=== PATIENT | male | born 1970 | race Hispanic/Latino ===

== ENCOUNTER 2017-04-04 11:28 | Inpatient (IN) | payer MEDICARE, MEDICAID ==
[2017-04-04 11:35] VITALS: O2SAT 100
--- NOTE | 2017-04-04 11:35 | ED PDOC ---
Psych Transfer Clearance - Clearance Statement Clearance Statement: Reviewed vital signs, lab results and transfer papers. Patient clinically stable for psychiatric admission.
[2017-04-04] MEDS ORDERED: Alum-Mag Hydrox-Simethicone Susp (30 mL) PO PRN (11:49)
[2017-04-04] MEDS ORDERED: DiphenhydrAMINE 50 mg/ml Inj IM PRN (11:49)
[2017-04-04] MEDS ORDERED: Magnesium Hydroxide Susp 30 ml UD PO PRN (11:49)
--- NOTE | 2017-04-04 11:53 | PCM.PSYCH ---
Initial Psychiatric Evaluation - Initial Psychiatric Evaluation Type of Admission: Voluntary Legal Status: Capacity Chief Complaint (in patient's own words): "I'm depressed." Patient's Reaction to Hospitalization: HPI: 47 yo male w/ h/o active cocaine abuse, most recent use yesterday, presents w/ suicidal ideation to jump off the bridge. The patient reports that he feels depressed and hopeless. He has not been compliant with outpatient psychiatric treatment or medications. He has pressured speech. He is currently able to contract for safety and denies active suicidal ideation/plan/ intent. He denies AH/VH/paranoia/delusions. PPHx: H/o of prior psychiatric admissions and treatment with various medications including (Thorazine, Lexapro, [place], Depakoe, Remeron, Pristiq). He reports that he has been diagnosed w/ depression and bipolar disorder in the past. He reports that he attempted to jump off a bridge 5 months ago in [place], [place] ([address] PMHx: Self reported history of asthma, CAD, DM, HLD, CVA, HTN, Heart Murmur Medications: States that he currently takes Advair, Levemir, Metformin, Iron and multiple vitamins ALL: Chlorpromazine, Thioridazine SHx: Homeless, +Active crack cocaine abuse, smokes 1ppd (declined smoking cessation), denies ETOH use Current Medications: Active Medications Generic Name Dose Route Start Last Admin Trade Name Freq PRN Reason Stop Dose Admin Acetaminophen 650 mg 04/04/17 11:49 Tylenol 325mg Tab PO Q4 PRN Pain, moderate (4-7) Al Hydrox/Mg Hydrox/Simethicone 30 ml 04/04/17 11:49 Maalox Plus 30 Ml PO Q4 PRN Dyspepsia Diphenhydramine HCl 50 mg 04/04/17 11:49 Benadryl IM Q6 PRN Extrapyramidal S/S Unable PO Diphenhydramine HCl 50 mg 04/04/17 11:49 Benadryl PO Q6 PRN Extrapyramidal Symptoms Haloperidol 5 mg 04/04/17 11:49 Haldol PO Q4 PRN Agitation Haloperidol Lactate 5 mg 04/04/17 11:49 Haldol IM Q4 PRN Agitation, Unable to Take PO Lorazepam 2 mg 04/04/17 11:49 Ativan IM Q4 PRN Anxiety/Agitation,Unable PO Lorazepam 2 mg 04/04/17 11:49 Ativan PO Q4 PRN Anxiety/Agitation Magnesium Hydroxide 30 ml 04/04/17 11:49 Milk Of Magnesia PO HS PRN Constipation Past Psychiatric History - Past Psychiatric History Previous Treatment History: Inpatient Pertinent Medical Hx (Current Medical&Sleep Prob, Allergies): Allergies Allergy/AdvReac Type Severity Reaction Status Date / Time chlorpromazine Allergy Verified 04/04/17 02:29 [From Thorazine] thioridazine [From Mellaril] Allergy Verified 04/04/17 02:29 Acetaminophen [Tylenol 325mg tab] 625 mg PO Q6 PRN 01/27/17 Albuterol HFA [Ventolin HFA 90 mcg/actuation (8 g)] 2 puff IH [id number] 01/27/17 Ascorbic Acid [Vitamin C] 500 mg PO DAILY 01/27/17 Cefdinir [Omnicef] 300 mg PO BID 01/27/17 Cholecalciferol [Vitamin D 1000 IU] 50,000 unit PO QWK 01/27/17 Cyanocobalamin (Vitamin B-12) [B-12] 1,000 mcg PO QWK 01/27/17 Doxycycline Hyclate 100 mg PO BID 01/27/17 Ergocalciferol (Vitamin D2) [Ergocal] 1.25 unit PO QWK 01/27/17 Ferrous Sulfate [Ferosul] 325 mg PO DAILY 01/27/17 Insulin Detemir [Levemir] 26 units SC DAILY 01/27/17 Pyridoxine HCl (Vitamin B6) [B-6] 25 mg PO DAILY 01/27/17 traMADol [Ultram] 50 mg PO TID 01/27/17 Escitalopram [Lexapro] 10 mg PO DAILY 30 Days #30 tab 01/31/17 Gabapentin [Neurontin] 300 mg PO BID 30 Days #60 cap 01/31/17 Glimepiride [amaRYL] 4 mg PO ACBD tab 01/31/17 Lisinopril [Zestril] 2.5 mg PO DAILY tab 01/31/17 Rosuvastatin Calcium [Crestor] 5 mg PO HS tab 01/31/17 hydrOXYzine HCl [Atarax] 25 mg PO BID 30 Days #60 tab 01/31/17 metFORMIN [glucOPHAGE] 1,000 mg PO BID tab 01/31/17 traZODone [Desyrel] 100 mg PO HS PRN 30 Days #30 tab 01/31/17 Review of Systems - Psychiatric Psychiatric: Abnormal Sleep Pattern, Anhedonia, Change in Appetite, Depression, Difficulty Concentrating, Mood Swings, Suicidal Ideation Mental Status Examination - Personal Presentation Personal Presentation: Looks stated age - Affect Affect: Constricted - Motor Activity Motor Activity: Calm - Reliability in Providing Information Reliability in Providing Information: Poor, due to altered mood - Speech Speech: Coherent - Mood Mood: Depressed - Formal Thought Process Formal Thought Process: Loosening of associations, Circumstantial - Hallucinations/Delusions Additional comments: Denies AH/VH/paranoia/delusions - Obsessions/Compulsions Obsessions: No Compulsions: No - Cognitive Functions Orientation: Person, Place, Situation, Time Sensorium: Alert Attention/Concentration: Attentive Estimate of Intelligence: Average Judgement: Intact, as evidence by: Insight regarding need for hospitalization Memory: Recent intact, as evidence by: Ability to recall events of the day - Risk Risk: Suicidal, Diminished functioning - Strength & Assets Inventory Strength & Assets Inventory: Cooperative - Limitations Limitations: Other (Homeless) DSM 5 DX - DSM 5 DSM 5 Diagnosis: Mood Disorder; Cocaine Use Disorder - Recommended/Plan of Treatment Treatment Recommendations and Plan of Treatment: Mood Disorder; Cocaine Use Disorder -Admit to psychiatry unit -Start Lexapro 10 mg PO Daily -Medicine consult -Individual and group therapy -Motivational interviewing -Psychoeducation -Disposition planning Projected ELOS: 3-7 days Discharge Plan and Discharge Criteria: Discharge patient when he is psychiatrically stable - Smoking Cessation Smoking Cessation Initiated: No Reason for not providing: Patient declined
[2017-04-04] MEDS ORDERED: Multivitamin With Minerals Tab PO SCH (13:00)
--- NOTE | 2017-04-04 16:35 | CP.PCM.CON ---
History of Present Illness - History of Present Illness History of Present Illness: reason for consult: per hospital protocol 47 year old male PMH DM, HTN, HLD, active cocaine abuse, admitted for suicidal ideations. No other omplaints at this time. HD stable NAD ROS: per HPI all other systems reviewed and negative. Past Patient History - Infectious Disease Hx of Infectious Diseases: None - Past Social History Smoking Status: Heavy Smoker > 10 Cigarettes Daily - CARDIAC Hx Hypertension: Yes - PULMONARY Hx Asthma: Yes Hx Bronchitis: Yes - NEUROLOGICAL Hx Seizures: No - HEENT Hx HEENT Problems: Yes (c/o poor hearing) - RENAL Hx Chronic Kidney Disease: No - ENDOCRINE/METABOLIC Hx Endocrine Disorders: Yes Hx Diabetes Mellitus Type 1: Yes (IDDM...non compliant) - HEMATOLOGICAL/ONCOLOGICAL Hx Anemia: Yes (no meds for same) Hx Human Immunodeficiency Virus (HIV): No - INTEGUMENTARY Hx Dermatological Problems: No - MUSCULOSKELETAL/RHEUMATOLOGICAL Hx Musculoskeletal Disorders: No - GASTROINTESTINAL Hx Gastrointestinal Disorders: Yes (umbilical hernia) - GENITOURINARY/GYNECOLOGICAL Hx Sexually Transmitted Disorders: No - PSYCHIATRIC Hx Anxiety: Yes Hx Bipolar Disorder: Yes Hx Depression: Yes Hx Substance Use: Yes - SURGICAL HISTORY Hx Surgeries: Yes Hx Herniorrhaphy: Yes - ANESTHESIA Hx Anesthesia: Yes Hx Anesthesia Reactions: No Meds Allergies/Adverse Reactions: Allergies Allergy/AdvReac Type Severity Reaction Status Date / Time chlorpromazine Allergy Verified 04/04/17 02:29 [From Thorazine] thioridazine [From Mellaril] Allergy Verified 04/04/17 02:29 - Medications Medications: Current Medications Acetaminophen (Tylenol 325mg Tab) 650 mg PO Q4 PRN PRN Reason: Pain, moderate (4-7) Al Hydrox/Mg Hydrox/Simethicone (Maalox Plus 30 Ml) 30 ml PO Q4 PRN PRN Reason: Dyspepsia Diphenhydramine HCl (Benadryl) 50 mg IM Q6 PRN PRN Reason: Extrapyramidal S/S Unable PO Diphenhydramine HCl (Benadryl) 50 mg PO Q6 PRN PRN Reason: Extrapyramidal Symptoms Escitalopram Oxalate (Lexapro) 10 mg PO DAILY [facility] Ferrous Sulfate (Feosol) 325 mg PO DAILY [facility] Gabapentin (Neurontin) 300 mg PO BID [facility] Haloperidol (Haldol) 5 mg PO Q4 PRN PRN Reason: Agitation Haloperidol Lactate (Haldol) 5 mg IM Q4 PRN PRN Reason: Agitation, Unable to Take PO Home Med (Glimepiride [Amaryl]) 4 mg PO ACBD [facility] Home Med (Lisinopril [Zestril]) 2.5 mg PO DAILY [facility] Home Med (Rosuvastatin Calcium [Crestor]) 5 mg PO HS [facility] Hydroxyzine HCl (Atarax) 25 mg PO BID [facility] Insulin Detemir (Levemir) 26 units SC DAILY [facility] Lorazepam (Ativan) 2 mg IM Q4 PRN PRN Reason: Anxiety/Agitation,Unable PO Lorazepam (Ativan) 2 mg PO Q4 PRN PRN Reason: Anxiety/Agitation Magnesium Hydroxide (Milk Of Magnesia) 30 ml PO HS PRN PRN Reason: Constipation Metformin HCl (Glucophage) 1,000 mg PO BID [facility] Multivitamins/Minerals (Therapeutic-M Tab) 1 tab PO DAILY [facility] Trazodone HCl (Desyrel) 50 mg PO HS PRN PRN Reason: Insomnia Physical Exam - Constitutional Appears: Non-toxic, No Acute Distress - Head Exam Head Exam: ATRAUMATIC, NORMOCEPHALIC - Eye Exam Eye Exam: EOMI, Normal appearance, PERRL Pupil Exam: NORMAL ACCOMODATION - ENT Exam ENT Exam: Mucous Membranes Moist, Normal Oropharynx - Respiratory Exam Respiratory Exam: Clear to Auscultation Bilateral, NORMAL BREATHING PATTERN - Cardiovascular Exam Cardiovascular Exam: RRR, +S1, +S2 - GI/Abdominal Exam GI & Abdominal Exam: Normal Bowel Sounds, Soft. absent: Mass, Organomegaly, Tenderness - Extremities Exam Extremities exam: Positive for: normal capillary refill, pedal pulses present - Back Exam Back exam: absent: CVA tenderness (L), CVA tenderness (R) - Neurological Exam Neurological exam: Alert, Oriented x3 - Psychiatric Exam Psychiatric exam: Normal Affect, Normal Mood Results - Vital Signs Recent Vital Signs: Last Vital Signs Temp 98.1 F 04/04/17 11:33 Pulse 86 04/04/17 11:33 Resp 19 04/04/17 11:33 BP 112/67 04/04/17 11:33 Pulse Ox 100 04/04/17 11:33 Assessment & Plan - Assessment and Plan (Free Text) Plan: Suicidal Ideations Per Psychiatry
--- NOTE | 2017-04-04 16:41 | PCM.BM ---
<KaciedevonRalf wyman - Last Filed: 04/04/17 16:42> Treatment Plan Problems - Problems identified on initial assessmt Hopelessness/Helplessness Date Initiated: 04/04/17 Time Initiated: 16:00 Assessment reference: HP, PE, SW, AT, NA, Other Status: Active Treatment assets and liabiliti Patient Assests: cooperative, educated, ADL independent, cognitively intact Patient Liabilities: live alone, physical pain - Milieu Protocol Maintain good personal hygiene: every shift Encourage regular showers, every shift Remind patient to perform daily oral care, every shift Assist patient to perform ADL's Maintain personal safety: every shift Educate patient to report safety concerns to staff, every shift Monitor environment for contraband/sharps Medication safety: Monitor for expected outcome, potential side effects: every shift, Assess barriers to learning: every shift, Assess readiness for medication education: every shift Milieu Narrative: Mood Disorder; Cocaine Use Disorder -Admit to psychiatry unit -Start Lexapro 10 mg PO Daily -Medicine consult -Individual and group therapy -Motivational interviewing -Psychoeducation -Disposition planning Discharge/Continuing Care - Treatment Team Participation Patient/Family/SO Statement: Mood Disorder; Cocaine Use Disorder -Admit to psychiatry unit -Start Lexapro 10 mg PO Daily -Medicine consult -Individual and group therapy -Motivational interviewing -Psychoeducation -Disposition planning <Lin Moreno - Last Filed: 04/09/17 08:39> - Diagnosis (1) Depression Status: Acute Interventions: psychotherapy, pharmacotherapy 04/09/17 08:40 <Carin Balderas - Last Filed: 04/09/17 16:33> Treatment assets and liabiliti Patient Assests: adapts well, cooperative (pt. refused to meet with right for majority of hospitalization), educated, resourceful, self-reliant, ADL independent, cognitively intact Patient Liabilities: live alone, physical pain, poor support system, dietary restrictions (pt. hs extensive hx of diabetes), substance abuse Family Contact Family involvement: Famliy/SO not involved Family contact: Patient declines to allow family contact at present - Goals for Treatment Patient goals for treatment: Patient to continue stabilization on 3NP through medication management and group/supportive therapy. Patient to be encouraged to attend groups regularly to promote self-awareness, sobriety, and improve insight , coping skills and self-esteem. Patient to be provided with referral for appropriate level of aftercare to reduce risk of future hospitalizations and ensure safety in the community. Discharge/Continuing Care - Education Needs Education Needs: Patient Medication, Patient Coping Skills, Patient Anger Management skills, Patient Community resources, Patient Aftercare Safety Plan - Discharge Discharge Criteria: Tolerates medication w/o severe side effects, Free of Suicidal thoughts, Free of agitation, Normal sleep pattern, Ability to care for self, No longer exhibiting s/s of withdrawal, Reduction of target symptoms Discharge to:: [facility] - Treatment Team Participation Patient/Family/SO Statement: 04/09/17 16:33 Patient superficially cooperative and easily irritable through-out tx team. Patient AOX4 with constricted affect and fair eye contact. Patient untidy with poor ADLs. Thoughts somewhat disorganized at times but pt is easily refocused. Patient repeatedly asked Tomorrow is the 1st right? I want to go on the 1st. through-out assessment. Patient reported improvement in symptoms of depression since admission. Patient denied SI/HI and was able to contract for safety on 3NP. Patient declined referrals to inpatient rehabs, [facility] or [facility]. Patient reports plan to stay in [facility] and pursue substance abuse tx with [facility] ([place]) upon discharge. Patient stated I already got it all figured out. Winch Derrick Operator encouraged [facility] referral. Patient agreeable. Discussed with Family/SO: No Was Patient/Family/SO present at Treatment Team Meeting: Yes
[2017-04-04] MEDS ORDERED: Insulin Lispro (humaLOG) 100 Units/ml Inj SC ONE (17:00)
[2017-04-04] MEDS: Insulin Lispro (humaLOG) 100 Units/ml Inj SC SCH (21:27)
[2017-04-05] MEDS ORDERED: Patient's Own Med (Glimepiride [Amaryl] 4 MG) PO SCH (07:30)
[2017-04-05] MEDS ORDERED: Patient's Own Med (Lisinopril [Zestril] 2.5 MG) PO SCH (09:00)
[2017-04-05] MEDS ORDERED: Insulin Detemir 100 Units/ml Inj SC SCH (09:00)
[2017-04-05] MEDS: Multivitamin With Minerals Tab PO SCH (09:03)
[2017-04-05] MEDS: GlipiZIDE 10 mg SR Tab PO SCH ×2 (09:03→17:46)
[2017-04-05] MEDS: Insulin Lispro (humaLOG) 100 Units/ml Inj SC SCH ×4 (09:05→22:00)
--- NOTE | 2017-04-05 11:22 | PCM.PYCHPN ---
Psychiatric Progress Note - Psychiatric Progress Note Patient seen today, length of contact: Patient evaluated, chart reviewed Patient Chief Complaint: "I'm depressed." Problems Identified/Issues Discussed: Patient is irritable this morning and was observed yelling at staff with breakfast demands this morning. He continues to be labile and irritable towards proposal lead writer and describes his mood as depressed. He denies AH/VH/SI/HI. Medication Change: No Medical Record Reviewed: Yes Consults ordered or reviewed: Medicine Mental Status Examination - Cognitive Function Orientation: Person, Place, Situation, Time Memory: Intact Attention: WNL Concentration: WNL Association: [facility] Fund of Knowledge: [facility] Decription of patient's judgement and insights: Poor I/J - Mood Mood: Depressed - Affect Affect: Constricted, Other (Labile, Irritable) - Speech Speech: Loud - Formal Thought Process Formal Thought Process: Circumstantial Psychotic Thoughts and Behaviors: Denies AH/VH/paranoia/delusions - Suicidal Ideation Suicidal Ideation: No - Homicidal Ideation Homicidal Ideation: No Goal/Treatment Plan - Goal/Treatment Plan Need for Continued Stay: Remain at risks for inpatient hospitalization, Severe depression anxiety, Discharge may exacerbated symptoms Progress Toward Problem(s) and Goals/Treatment Plan: Mood Disorder; Cocaine Use Disorder -Continue Lexapro 10 mg PO Daily -Medicine consult -Individual and group therapy -Motivational interviewing -Psychoeducation -Disposition planning Estimated Date of D/C: 04/09/17
[2017-04-05] MEDS: Albuterol HFA 90 mcg/actuation (8 g) IH SCH ×2 (17:47→21:54)
[2017-04-06] MEDS: Albuterol HFA 90 mcg/actuation (8 g) IH SCH ×5 (02:00→20:16)
[2017-04-06] MEDS: Insulin Detemir 100 Units/ml Inj SC SCH ×3 (03:49→21:23)
[2017-04-06] MEDS: Insulin Lispro (humaLOG) 100 Units/ml Inj SC SCH ×4 (06:46→21:19)
[2017-04-06 09:25] VITALS: RESP 18
[2017-04-06] MEDS: GlipiZIDE 10 mg SR Tab PO SCH ×3 (09:30→18:16)
[2017-04-06] MEDS: Multivitamin With Minerals Tab PO SCH ×2 (09:34→10:14)
--- NOTE | 2017-04-06 15:13 | PCM.PYCHPN ---
Psychiatric Progress Note - Psychiatric Progress Note Patient seen today, length of contact: Patient evaluated, chart reviewed Patient Chief Complaint: I am very depressed I miss my Problems Identified/Issues Discussed: pt on evaluation reported feeling depressed, anxious , presenting with depressed affect and disorganized thought process, pt reported he relapse on cocaine due to feeling depressed as he continues to mourn his who 9 months ago, prt continues to report feeling hopeless and helpless, denied any current suicidal or homicidal ideations denied perceptual disturbances, no reported side effect of medications DSM 5 Symptoms Update: cocine induced mood disorder with depressive features depression Medication Change: No Medical Record Reviewed: Yes Mental Status Examination - Cognitive Function Orientation: Person, Place, Situation, Time Memory: Intact Attention: WNL Concentration: WNL Association: [facility] Fund of Knowledge: [facility] - Mood Mood: Depressed - Affect Affect: Constricted, Other (Labile, Irritable) - Speech Speech: Loud - Formal Thought Process Formal Thought Process: Circumstantial Psychotic Thoughts and Behaviors: pt denied any current perceptual disturbances, non ellicited - Suicidal Ideation Suicidal Ideation: No - Homicidal Ideation Homicidal Ideation: No Goal/Treatment Plan - Goal/Treatment Plan Need for Continued Stay: Remain at risks for inpatient hospitalization, Severe depression anxiety, Discharge may exacerbated symptoms Progress Toward Problem(s) and Goals/Treatment Plan: continue with lexapro and neurontin motivattional, group and supportive therapy Estimated Date of D/C: 04/09/17
[2017-04-07] MEDS: Albuterol HFA 90 mcg/actuation (8 g) IH SCH ×3 (06:14→18:11)
[2017-04-07] MEDS: Insulin Lispro (humaLOG) 100 Units/ml Inj SC SCH ×4 (08:08→21:14)
[2017-04-07] MEDS: Multivitamin With Minerals Tab PO SCH (08:33)
[2017-04-07] MEDS: GlipiZIDE 10 mg SR Tab PO SCH ×2 (08:39→18:00)
[2017-04-07 10:15] LABS: ALB/GLOB RATIO 1.4 (1.0-2.1); ALBUMIN 3.9 g/dL (3.5-5.0); ALT/SGPT 30 U/L (21-72); AST/SGOT 18 U/L (17-59); BLOOD UREA NITROGEN 19 mg/dl (9-20); CALCIUM 9.1 mg/dL (8.4-10.2); GFR AFRICAN-AMERICAN > 60; GFR NON-AFRICAN AMERICAN > 60; HDL CHOLESTEROL 40 MG/DL (30-70)
[2017-04-07 10:26] LABS: LDL CHOLESTEROL 104 mg/dL (0-129)
[2017-04-07 10:28] LABS: T4 6.09 ug/dl (5.5-11.0)
--- NOTE | 2017-04-07 17:58 | PCM.PYCHPN ---
Psychiatric Progress Note - Psychiatric Progress Note Patient seen today, length of contact: Patient evaluated, chart reviewed Patient Chief Complaint: I AM STILL DEPRESSED AND TIRED Problems Identified/Issues Discussed: PT CONTINUES TO PRESENT WITH DEPRESSED MOOD AND AFFECT, ISOLATIVE IN HIS ROOM REFUSING TO ATTEND GROUPS, LOW ENERGY AND ANHEDONIA, PASSIVE SUICIDAL IDEATION WITHOUT A PLAN DENIED HOMICIDAL IDEATIONS DENIED PERCEPTUAL DISTURBANCES, LIMITED INSIGHT INTO ILLNESS DSM 5 Symptoms Update: COCAINE INDUCED MOOD DISORDER WITH DEPRESSIVE FEATURES COCAINE USE DISORDER DEPRESSION Medication Change: No Medical Record Reviewed: Yes Mental Status Examination - Cognitive Function Orientation: Person, Place, Situation, Time Memory: Intact Attention: WNL Concentration: WNL Association: [facility] Fund of Knowledge: [facility] - Mood Mood: Depressed - Affect Affect: Constricted, Other (Labile, Irritable) - Speech Speech: Loud - Formal Thought Process Formal Thought Process: Circumstantial Psychotic Thoughts and Behaviors: pt denied any current perceptual disturbances, non ellicited - Suicidal Ideation Suicidal Ideation: No - Homicidal Ideation Homicidal Ideation: No Goal/Treatment Plan - Goal/Treatment Plan Need for Continued Stay: Remain at risks for inpatient hospitalization, Severe depression anxiety, Discharge may exacerbated symptoms Progress Toward Problem(s) and Goals/Treatment Plan: INCREASE lexapro TO 20MG continue with neurontin encourage pt to attend groups motivattional, group and supportive therapy Estimated Date of D/C: 04/09/17
[2017-04-07] MEDS: Insulin Detemir 100 Units/ml Inj SC SCH (21:15)
[2017-04-08] MEDS: Albuterol HFA 90 mcg/actuation (8 g) IH SCH ×5 (01:39→20:12)
[2017-04-08] MEDS: Insulin Lispro (humaLOG) 100 Units/ml Inj SC SCH ×4 (08:51→21:09)
[2017-04-08] MEDS: GlipiZIDE 10 mg SR Tab PO SCH ×2 (08:53→19:01)
[2017-04-08] MEDS: Multivitamin With Minerals Tab PO SCH (08:53)
--- NOTE | 2017-04-08 14:58 | PCM.PYCHPN ---
Psychiatric Progress Note - Psychiatric Progress Note Patient seen today, length of contact: Patient evaluated, chart reviewed Patient Chief Complaint: I FEEL BETTER TODAY Problems Identified/Issues Discussed: PT evaluated with treatment team, reported better mood, brighter affect, better communication with staff and less isolative, reported improved sleep and appetite denied any current suicidal or homicidal ideations, denied perceptual disturbnaces, no reported side effects of medications DSM 5 Symptoms Update: cocaine induced mood disorder with depressive features major depression Medication Change: No Medical Record Reviewed: Yes Mental Status Examination - Cognitive Function Orientation: Person, Place, Situation, Time Memory: Intact Attention: WNL Concentration: WNL Association: [facility] Fund of Knowledge: [facility] - Mood Mood: Neutral - Affect Affect: Constricted, Other (Labile, Irritable) - Speech Speech: Loud - Formal Thought Process Formal Thought Process: Circumstantial Psychotic Thoughts and Behaviors: pt denied any current perceptual disturbances, non ellicited - Suicidal Ideation Suicidal Ideation: No - Homicidal Ideation Homicidal Ideation: No Goal/Treatment Plan - Goal/Treatment Plan Need for Continued Stay: Remain at risks for inpatient hospitalization, Severe depression anxiety, Discharge may exacerbated symptoms Progress Toward Problem(s) and Goals/Treatment Plan: continue lexapro 15MG continue with neurontin for anxiety and pain encourage pt to attend groups motivattional, group and supportive therapy Estimated Date of D/C: 04/09/17
[2017-04-08] MEDS: Insulin Detemir 100 Units/ml Inj SC SCH (21:24)
[2017-04-09] MEDS: Albuterol HFA 90 mcg/actuation (8 g) IH SCH ×2 (06:41→09:22)
[2017-04-09 09:12] VITALS: BP 144/59; TEMP 98.1
[2017-04-09] MEDS: Insulin Lispro (humaLOG) 100 Units/ml Inj SC SCH (09:17)
[2017-04-09] MEDS: GlipiZIDE 10 mg SR Tab PO SCH (09:21)
[2017-04-09] MEDS: Multivitamin With Minerals Tab PO SCH (09:21)
[2017-04-09 09:26] VITALS: PULSE 61
--- NOTE | 2017-04-09 11:13 | PCM.PYCHDC ---
Mental Status Examination - Mental Status Examination Orientation: Person, Place, Situation Mood: Neutral Affect: Broad Speech: Appropriate Attention: WNL Concentration: WNL Association: WNL Fund of Knowledge: WNL Formal Thought Process: No Impairment Description of patient's judgement and insight: partial insight and poor judgement Psychotic Thoughts and Behaviors: pt denied any current perceptual disturbances, non ellicited Suicidal Ideation: No Current Homicidal Ideation?: No Discharge Summary - Discharge Note Reason for Hospitalization: 47 yo male w/ h/o active cocaine abuse, most recent use yesterday, presents w/ suicidal ideation to jump off the bridge. The patient reports that he feels depressed and hopeless. He has not been compliant with outpatient psychiatric treatment or medications. He has pressured speech. He is currently able to contract for safety and denies active suicidal ideation/plan/intent. He denies AH/VH/paranoia/delusions. Laboratory Data: Abnormal Lab Results 04/08/17 04/08/17 04/08/17 13:37 17:14 21:07 POC Glucose (mg/dL) 189 H 223 H 216 H 04/09/17 06:34 POC Glucose (mg/dL) 107 Consultations:: List each consultation separately and include: 1. Reason for request. 2. Findings. 3. Follow-up Summary of Hospital Course include:: 1. Description of specific treatment plan utilized for patients during their course of treatmen. 2. Summarize the time- course for resolution of acute symptoms and/or regressed behaviors. 3. Describe issues identified and worked on during hospitalization. 4. Describe medication utilized. 5. Describe medical problems identified and treated. 6. Reassessment of suicide risk Summary of Hospital Course: pt on admission was started on lexapro for anxiety it was uptitrated to 15mg pt was also started on neurontin for anxiety Motivational group and supportive therapy provided no reported side effects of medications Mental status on discharge was stable, pt denied suicidal or homicidal ideations denied perceptual disturbances, follow up arranged by social media editor with outpatient [facility] and referral to - Diagnosis (1) Depression Current Visit: No Status: Acute - Final Diagnosis (DSM 5) Condition upon Discharge: GOOD DSM 5: cocaine induced mood disorder with depressive features cocaine use disorder mjor depression Disposition: HOME/ ROUTINE Follow-up Treatment Plan: [facility] Prescriptions/Medication Reconciliation: Escitalopram [Lexapro] 15 mg PO DAILY 30 Days #90 tab Gabapentin [Neurontin] 300 mg PO BID 30 Days #60 cap GlipiZIDE SR [Glucotrol XL] 10 mg PO ACBD 15 Days #15 tab hydrOXYzine HCl [Atarax] 25 mg PO BID 30 Days #60 tab Lisinopril [Zestril] 2.5 mg PO DAILY 15 Days #7 tab MetFORMIN [glucoPHAGE] 1,000 mg PO BID 15 Days #30 tab traZODone [Desyrel] 50 mg PO HS PRN 30 Days #30 tab PRN Reason: Insomnia - Antipsychotic Medications Pt discharged on 2 or more routine antipsychotic medications: No
== END 2017-04-09 12:03 | disposition home or self-care (01) | DRG 895 ==
LOC: H.ER 11:28 → H.ERHOLD 11:34 → H.PSYCH 12:00
PROVIDERS: ADMIT Psychiatry & Neurology Psychiatry; ATTEND Psychiatry & Neurology Psychiatry
PROC: HZ57ZZZ Individual Psychotherapy for Substance Abuse Treatment, Motivational Enhancement (ICD-10-PCS; principal; 2017-04-04)
PROC: HZ59ZZZ Individual Psychotherapy for Substance Abuse Treatment, Supportive (ICD-10-PCS; 2017-04-04)
PROC: GZHZZZZ Group Psychotherapy (ICD-10-PCS; 2017-04-04)
DX: F14.94 Cocaine use, unspecified with cocaine-induced mood disorder (principal); R45.851 Suicidal ideations; F32.9 Major depressive disorder, single episode, unspecified; F41.9 Anxiety disorder, unspecified; Z91.19 Patient's noncompliance with other medical treatment and regimen; Z91.14 Patient's other noncompliance with medication regimen; I25.10 Atherosclerotic heart disease of native coronary artery without angina pectoris; E78.5 Hyperlipidemia, unspecified; Z86.73 Personal history of transient ischemic attack (TIA), and cerebral infarction without residual deficits; I10 Essential (primary) hypertension; E10.9 Type 1 diabetes mellitus without complications; Z79.4 Long term (current) use of insulin; Z59.0 Homelessness; F17.210 Nicotine dependence, cigarettes, uncomplicated

== ENCOUNTER 2017-04-28 23:36 | Emergency (ER) | payer MEDICARE, MEDICAID ==
[2017-04-28 23:52] VITALS: BP 165/92; PULSE 69; RESP 18; TEMP 98.1; O2SAT 98
--- NOTE | 2017-04-29 02:10 | ED PDOC ---
HPI: Allergic Reaction Time Seen by Provider: 04/28/17 23:56 Chief Complaint (Nursing): Allergic Reaction Past Medical History Vital Signs: Last Vital Signs Temp 98.1 F 04/28/17 23:45 Pulse 69 04/28/17 23:45 Resp 18 04/28/17 23:45 BP 165/92 H 04/28/17 23:45 Pulse Ox 98 04/28/17 23:45 - Medical History PMH: Anemia (no meds for same), Anxiety, Asthma, Bipolar Disorder, Bronchitis, Depression, HTN Denies: Diabetes, Hepatitis, HIV, Chronic Kidney Disease, Seizures, Sexually Transmitted Disease - Immunization History Hx Tetanus Toxoid Vaccination: No Hx Influenza Vaccination: No Hx Pneumococcal Vaccination: No - Home Medications Home Medications: Ambulatory Orders Medication Instructions Recorded Acetaminophen [Tylenol 325mg tab] 625 mg PO Q6 PRN 01/27/17 Albuterol HFA [Ventolin HFA 90 2 puff IH [id number] 01/27/17 mcg/actuation (8 g)] Ascorbic Acid [Vitamin C] 500 mg PO DAILY 01/27/17 Cefdinir [Omnicef] 300 mg PO BID 01/27/17 Cholecalciferol [Vitamin D 1000 IU] 50,000 unit PO QWK 01/27/17 Cyanocobalamin (Vitamin B-12) 1,000 mcg PO QWK 01/27/17 [B-12] Doxycycline Hyclate 100 mg PO BID 01/27/17 Ergocalciferol (Vitamin D2) 1.25 unit PO QWK 01/27/17 [Ergocal] Ferrous Sulfate [Ferosul] 325 mg PO DAILY 01/27/17 Insulin Detemir [Levemir] 26 units SC DAILY 01/27/17 Pyridoxine HCl (Vitamin B6) [B-6] 25 mg PO DAILY 01/27/17 traMADol [Ultram] 50 mg PO TID 01/27/17 Glimepiride [amaRYL] 4 mg PO ACBD tab 01/31/17 Lisinopril [Zestril] 2.5 mg PO DAILY tab 01/31/17 Rosuvastatin Calcium [Crestor] 5 mg PO HS tab 01/31/17 Atorvastatin [Lipitor] 10 mg PO HS #0 tab 04/09/17 Escitalopram [Lexapro] 15 mg PO DAILY 30 Days #90 tab 04/09/17 Ferrous Sulfate [Feosol] 325 mg PO DAILY tab 04/09/17 Gabapentin [Neurontin] 300 mg PO BID 30 Days #60 cap 04/09/17 GlipiZIDE SR [Glucotrol XL] 10 mg PO ACBD 15 Days #15 tab 04/09/17 Lisinopril [Zestril] 2.5 mg PO DAILY 15 Days #7 tab 04/09/17 MetFORMIN [glucoPHAGE] 1,000 mg PO BID 15 Days #30 tab 04/09/17 hydrOXYzine HCl [Atarax] 25 mg PO BID 30 Days #60 tab 04/09/17 traZODone [Desyrel] 50 mg PO HS PRN 30 Days #30 tab 04/09/17 - Allergies Allergies/Adverse Reactions: Allergies Allergy/AdvReac Type Severity Reaction Status Date / Time chlorpromazine Allergy seizure Verified 04/28/17 23:45 [From Thorazine] thioridazine [From Mellaril] Allergy seizure Verified 04/28/17 23:45 - ECG O2 Sat by Pulse Oximetry: 98 Disposition - Clinical Impression Clinical Impression: Side effect of medication - Disposition Condition: STABLE Instructions: Side Effects From Medicines Forms: [employer] Connect (Kosovan)
--- NOTE | 2017-04-29 02:21 | ED PDOC ---
HPI: General Adult Time Seen by Provider: 04/28/17 23:56 Chief Complaint (Nursing): Allergic Reaction Chief Complaint (Provider): Dizziness and Fatigue History Per: Patient History/Exam Limitations: no limitations Onset/Duration Of Symptoms: Hrs (since this evening) Current Symptoms Are (Timing): Still Present Additional Complaint(s): 47 year old undomiciled male presents to ED with complaints of dizziness and fatigue since this evening and has a past medical history of bronchitis, COPD, and bipolar disorder. Patient notes symptoms occurred after taking Vistaril as prescribed by his PMD. Reports that he is currently taking a course of antibiotics for a URI. PCP: AMANDA Past Medical History Reviewed: Historical Data, Nursing Documentation, Vital Signs Vital Signs: Last Vital Signs Temp 98.1 F 04/28/17 23:45 Pulse 69 04/28/17 23:45 Resp 18 04/28/17 23:45 BP 165/92 H 04/28/17 23:45 Pulse Ox 98 04/28/17 23:45 - Medical History PMH: Anemia (no meds for same), Anxiety, Asthma, Bipolar Disorder, Bronchitis, Depression, HTN Denies: Diabetes, Hepatitis, HIV, Chronic Kidney Disease, Seizures, Sexually Transmitted Disease - Family History Family History: States: Unknown Family Hx - Living Arrangements Living Arrangements: Other (Undomiciled) - Immunization History Hx Tetanus Toxoid Vaccination: No Hx Influenza Vaccination: No Hx Pneumococcal Vaccination: No - Home Medications Home Medications: Ambulatory Orders Medication Instructions Recorded Acetaminophen [Tylenol 325mg tab] 625 mg PO Q6 PRN 01/27/17 Albuterol HFA [Ventolin HFA 90 2 puff IH [id number] 01/27/17 mcg/actuation (8 g)] Ascorbic Acid [Vitamin C] 500 mg PO DAILY 01/27/17 Cefdinir [Omnicef] 300 mg PO BID 01/27/17 Cholecalciferol [Vitamin D 1000 IU] 50,000 unit PO QWK 01/27/17 Cyanocobalamin (Vitamin B-12) 1,000 mcg PO QWK 01/27/17 [B-12] Doxycycline Hyclate 100 mg PO BID 01/27/17 Ergocalciferol (Vitamin D2) 1.25 unit PO QWK 01/27/17 [Ergocal] Ferrous Sulfate [Ferosul] 325 mg PO DAILY 01/27/17 Insulin Detemir [Levemir] 26 units SC DAILY 01/27/17 Pyridoxine HCl (Vitamin B6) [B-6] 25 mg PO DAILY 01/27/17 traMADol [Ultram] 50 mg PO TID 01/27/17 Glimepiride [amaRYL] 4 mg PO ACBD tab 01/31/17 Lisinopril [Zestril] 2.5 mg PO DAILY tab 01/31/17 Rosuvastatin Calcium [Crestor] 5 mg PO HS tab 01/31/17 Atorvastatin [Lipitor] 10 mg PO HS #0 tab 04/09/17 Escitalopram [Lexapro] 15 mg PO DAILY 30 Days #90 tab 04/09/17 Ferrous Sulfate [Feosol] 325 mg PO DAILY tab 04/09/17 Gabapentin [Neurontin] 300 mg PO BID 30 Days #60 cap 04/09/17 GlipiZIDE SR [Glucotrol XL] 10 mg PO ACBD 15 Days #15 tab 04/09/17 Lisinopril [Zestril] 2.5 mg PO DAILY 15 Days #7 tab 04/09/17 MetFORMIN [glucoPHAGE] 1,000 mg PO BID 15 Days #30 tab 04/09/17 hydrOXYzine HCl [Atarax] 25 mg PO BID 30 Days #60 tab 04/09/17 traZODone [Desyrel] 50 mg PO HS PRN 30 Days #30 tab 04/09/17 - Allergies Allergies/Adverse Reactions: Allergies Allergy/AdvReac Type Severity Reaction Status Date / Time chlorpromazine Allergy seizure Verified 04/28/17 23:45 [From Thorazine] thioridazine [From Mellaril] Allergy seizure Verified 04/28/17 23:45 Review of Systems ROS Statement: Except As Marked, All Systems Reviewed And Found Negative Constitutional: Positive for: Other (Fatigue) Neurological: Positive for: Dizziness Physical Exam - Reviewed Nursing Documentation Reviewed: Yes Vital Signs Reviewed: Yes - Physical Exam Appears: Positive for: Non-toxic, No Acute Distress Skin: Positive for: Normal Color, Warm, Dry Eye Exam: Positive for: Normal appearance ENT: Positive for: Normal ENT Inspection, Pharynx Is (clear) Cardiovascular/Chest: Positive for: Regular Rate, Rhythm. Negative for: Murmur Respiratory: Positive for: Normal Breath Sounds. Negative for: Respiratory Distress Gastrointestinal/Abdominal: Positive for: Soft. Negative for: Tenderness Neurologic/Psych: Positive for: Alert, Oriented. Negative for: Motor/Sensory Deficits - ECG O2 Sat by Pulse Oximetry: 98 (RA) Pulse Ox Interpretation: Normal Medical Decision Making Medical Decision Makin Initial impression: normal side effects of Vistaril Upon provider evaluation, patient looked awake, alert, and oriented x3. Patient was watching TV while provider attempted to evaluate patient. Provider explained the regular side effects of Vistaril to the patient and advised him to follow up with PMD in 2-3 days. Patient is stable for discharge. Scribe Attestation: Documented by Dayami Barrera acting as a scribe Todd Garcia MD. Scribe Attestation: All medical record entries made by the Scribe were at my direction and personally dictated by me. I have reviewed the chart and agree that the record accurately reflects my personal performance of the history, physical exam, medical decision making, and the department course for this patient. I have also personally directed, reviewed, and agree with the discharge instructions and disposition. Disposition - Clinical Impression Clinical Impression: Side effect of medication - Disposition Disposition: Routine/Home Disposition Time: 00:54 Condition: STABLE Instructions: Side Effects From Medicines Forms: [employer] (Ugandan)
== END 2017-04-29 03:00 | disposition home or self-care (01) ==
LOC: H.ER 23:36
DX: T78.40XA Allergy, unspecified, initial encounter (principal)